=== PATIENT | female | born 1965 | race Caucasian/White ===

== ENCOUNTER 2017-03-03 14:38 | Emergency (ER) | payer OTHER ==
[~2017-03-03] VITALS: Ht 157.5 cm; Wt 74.5 kg
[~2017-03-03 14:38] MED LIST: BACTDS PO; CEPH-443 PO
[2017-03-03 14:40] VITALS: Ht 157.5 cm; Wt 74.5 kg
[2017-03-03] MEDS ORDERED: LIDOCAINE 1% (MDV) 20 ML INJ INJ STA (15:42)
[2017-03-03] MEDS ORDERED: DIPHTH/TET/ACEL PERTUSS (ADULT) 0.5 ML VIAL IM* ONE (16:00)
[2017-03-03] MEDS ORDERED: ACETAMINOPHEN 325 MG TAB PO ONE (16:00)
--- NOTE | 2017-03-03 16:38 | RADRPT ---
PROCEDURE: XR Hand. CLINICAL INDICATION: Fracture TECHNIQUE: Three views of the right hand were obtained. COMPARISON: No prior studies are available for comparison. FINDINGS: There is no acute osseous or articular abnormality. No evidence for fracture. Bone mineral density is preserved. The articular surfaces are smooth without evidence of marginal erosions. A subcortica l cyst is seen at the scaphoid. Bone mineral density is decreased. No evidence for a radiopaque fo reign body. The soft tissues are intact without evidence of calcifications. IMPRESSION: 1. No acute osseous abnormality or radiopaque foreign body. RPTAT: PP .Michelet Tang MD, Date Time Electronically viewed and signed by .Michelet Tang MD, MD on 03/03/2017 16:37 .d/
[2017-03-03] MEDS ORDERED: IBUP-1542 PO (16:51)
--- NOTE | 2017-03-03 16:53 | ERD ---
ER Documentation Chief Complaint Date/Time DATE: 03/03/17 TIME: 16:52 Chief Complaint RIGHT HAND LAC S/P FELL WHILE HOLDING A GLASS HPI This 52-year-old female sustained a laceration on her right palm after falling while holding a glass today. She denies restricted range of motion weakness. She has some bleeding primarily from the base of the right palm. She is very tiny abrasions at the tip of her index finger as well. Her tetanus is not up-to -date ROS All systems reviewed and are negative except as per history of present illness. Medications Home Meds Active Scripts Ibuprofen* (Motrin*) 600 Mg Tab, 600 MG PO Q6, #15 TAB Prov:JESUS JOHNSON MD 03/03/17 Cephalexin* (Keflex*) 500 Mg Capsule, 500 MG PO QID for 7 Days, CAP Prov:ABDI MOORE PA-C 07/30/16 Sulfamethoxazole-Trimethoprim* (Bactrim* DS) 800-160 Mg Tab, 1 TAB PO BID for 7 Days, TAB Prov:ABDI MOORE PA-C 07/30/16 Allergies Allergies: Coded Allergies: No Known Drug Allergies (Verified Allergy, Unknown, 07/30/16) PMhx/Soc Medical and Surgical Hx: pt denies Medical Hx, pt denies Surgical Hx Hx Alcohol Use: No Hx Substance Use: No Hx Tobacco Use: No Smoking Status: Never smoker Physical Exam Vitals Vital Signs Date Time Temp Pulse Resp B/P Pulse Ox O2 Delivery O2 Flow Rate FiO2 03/03/17 14:40 97.6 82 18 128/58 98 Physical Exam Const: [] Alert, not ill-appearing. Head: Atraumatic Eyes: Normal Conjunctiva ENT: Normal External Ears, Nose and Mouth. Neck: Full range of motion..~ No meningismus. Resp: Clear to auscultation bilaterally Cardio: Regular rate and rhythm, no murmurs Abd: Soft, non tender, non distended. Normal bowel sounds Skin: No petechiae or rashes. There is approximately 3.5 cm V-shaped laceration of the proximal palm. There is no exposed tendons or evidence of neurologic or tendon deficit. There is a few small abrasion to the tip of the index finger and the base of the fifth digit. There is no visible foreign body , erythema or active bleeding. Back: No midline or flank tenderness Ext: No cyanosis, or edema Neur: Awake and alert Psych: Normal Mood and Affect Results 24 hrs Current Medications Medications (Trade) Dose Ordered Sig/Parish Route PRN Reason Start Time Stop Time Status Last Admin Dose Admin Diphtheria/ Tetanus/Acell Pertussis (Adacel) 0.5 ml ONCE ONCE IM* 03/03/17 16:00 03/03/17 16:01 DC 03/03/17 15:51 Acetaminophen (Tylenol Tab) 650 mg ONCE ONCE PO 03/03/17 16:00 03/03/17 16:01 DC 03/03/17 15:50 Lidocaine (Xylocaine 1% (Mdv) 20 ml) 20 ml ONCE STAT INJ 03/03/17 15:42 03/03/17 15:44 DC Procedures/MDM X-ray Hand 3V interpreted by me: Scaphoid: [Normal] Bones: [No fracture] Joints: [No dislocation] Foreign body: [None]. Impression have a normal right index ray without visible foreign body Right hand lacerations were irrigated copiously with normal saline. 3 cc of lidocaine was used for local infiltration. 5 4-0 nylon sutures were used to approximate the wound and the wound was dressed and patient tolerated procedure well. Patient has no signs of infection, tendon or neurologic deficit, foreign body, fracture, dislocation. She will discharged home instructions for wound check in 2 days and suture removal in 7-10 days. She should return sooner for fevers, redness, new symptoms Departure Diagnosis: Primary Impression: Laceration Condition: Stable Patient Instructions: Laceration, All Additional Instructions: cheque 2 fay para cheque para infeccion. cheque 7-10 fay para saca los puntos / grapas. JESUS JOHNSON MD March 03, 2017 16:53
[2017-03-03 17:30] VITALS: BP 125/54; PULSE 70; RESP 18; TEMP 97.6
== END 2017-03-03 17:30 | disposition home or self-care (01) ==
LOC: FTE 14:38
DX: S61.411A Laceration without foreign body of right hand, initial encounter (principal); W01.110A Fall on same level from slipping, tripping and stumbling with subsequent striking against sharp glass, initial encounter; Y92.9 Unspecified place or not applicable; Z23 Encounter for immunization
CPT/HCPCS: 12002; 73130; 90715; Z7610; 90471

== ENCOUNTER 2017-03-05 06:20 | Emergency (ER) | payer OTHER ==
[~2017-03-05] VITALS: Ht 160 cm; Wt 76.0 kg
[~2017-03-05 06:20] MED LIST changes: +IBUP-1542 PO
[2017-03-05 06:26] VITALS: Ht 160 cm; Wt 76.0 kg
--- NOTE | 2017-03-05 07:30 | ERD ---
ER Documentation Chief Complaint Date/Time DATE: 03/05/17 TIME: 07:08 Chief Complaint wound check on rt hand HPI 52-year-old female patient with no significant past medical history presents the ED for a wound check. Patient fell on her right palm while holding a glass on March 03, 2017. Patient denies any weakness, numbness or tingling, loss of sensation, fever, chills, loss of range of motion. Patient was up-to-date with her tetanus vaccine during her last visit. X-rays show no fractures or visible foreign bodies. Patient states that she has 5 sutures. ROS All systems reviewed and are negative except as per history of present illness. Medications Home Meds Active Scripts Ibuprofen* (Motrin*) 600 Mg Tab, 600 MG PO Q6, #15 TAB Prov:JESUS JOHNSON MD 03/03/17 Cephalexin* (Keflex*) 500 Mg Capsule, 500 MG PO QID for 7 Days, CAP Prov:ABDI MOORE PA-C 07/30/16 Sulfamethoxazole-Trimethoprim* (Bactrim* DS) 800-160 Mg Tab, 1 TAB PO BID for 7 Days, TAB Prov:ABDI MOORE PA-C 07/30/16 Allergies Allergies: Coded Allergies: No Known Drug Allergies (Verified Allergy, Unknown, 07/30/16) PMhx/Soc Hx Alcohol Use: No Hx Substance Use: No Hx Tobacco Use: No Physical Exam Vitals Vital Signs Date Time Temp Pulse Resp B/P Pulse Ox O2 Delivery O2 Flow Rate FiO2 03/05/17 06:26 98.1 71 16 130/66 99 Physical Exam Const: [id number], well-nourished. In no acute distress. Head: Atraumatic, normocephalic Eyes: Normal Conjunctiva without injection ENT: Normal external ear, nose and mouth. Neck: Full range of motion. No meningismus. Resp: Clear to auscultation bilaterally. No wheezing, rhonchi, rales, or crackles. No accessory muscle use. No retractions. Cardio: Regular rate and rhythm, no murmurs Skin: No petechiae or rashes Back: No midline tenderness. No CVA tenderness. Ext: No cyanosis, or edema. Cap refill less than 2 seconds. Distal pulses intact bilaterally. 3.5 cm V-shaped laceration on the right palmar side with no visualization of any tendon or dehiscence. No purulent discharge. No bleeding noted. No fluctuance or induration or erythema or edema noted. Neur: Awake and alert. Normal gait and coordination. Muscle strength 5/5. Sensation intact bilaterally. Psych: Normal Mood and Affect Procedures/MDM This is a 52-year-old female patient with no significant past medical history presents to the ED for a wound check. Patient is afebrile and nontoxic- appearing. Patient has normal vital signs. There is no erythema, edema, purulent discharge. No signs of deep space infection, cellulitis, sepsis, or other emergent conditions. Patient is neurovascularly intact. No evidence of compartment syndrome, neurologic injury, vascular injury, open joint, tendon laceration, or foreign body. Patient is appropriate for outpatient follow up. Instructed patient to return for suture removal in 7 days. Follow up with primary care physician in 1-2 days. Instructed patient to return to the ED sooner for any worsening symptoms. Patient's questions were answered. Patient understood and agreed with discharge plan. Patient discharged stable. Departure Diagnosis: Primary Impression: Encounter for re-check of laceration wound Condition: Stable Patient Instructions: Wound Care, Laceration, Hand Referrals: [facility], [facility] YOU HAVE RECEIVED A MEDICAL SCREENING EXAM AND THE RESULTS INDICATE THAT YOU DO NOT HAVE A CONDITION THAT REQUIRES URGENT TREATMENT IN THE EMERGENCY DEPARTMENT. FURTHER EVALUATION AND TREATMENT OF YOUR CONDITION CAN WAIT UNTIL YOU ARE SEEN IN YOUR DOCTORS OFFICE WITHIN THE NEXT 1-2 DAYS. IT IS YOUR RESPONSIBILITY TO MAKE AN APPOINTMENT FOR FOLOW-UP CARE. IF YOU HAVE A PRIMARY DOCTOR --you should call your primary doctor and schedule an appointment IF YOU DO NOT HAVE A PRIMARY DOCTOR YOU CAN CALL OUR PHYSICIAN REFERRAL HOTLINE AT IF YOU CAN NOT AFFORD TO SEE A PHYSICIAN YOU CAN CHOSE FROM THE FOLLOWING [facility], [facility] [address] [facility] [address] [facility] [address] [facility] [address] [facility] [address] [facility] [address] [facility]. [facility] YOU HAVE RECEIVED A MEDICAL SCREENING EXAM AND THE RESULTS INDICATE THAT YOU DO NOT HAVE A CONDITION THAT REQUIRES URGENT TREATMENT IN THE EMERGENCY DEPARTMENT. FURTHER EVALUATION AND TREATMENT OF YOUR CONDITION CAN WAIT UNTIL YOU ARE SEEN IN YOUR DOCTORS OFFICE WITHIN THE NEXT 1-2 DAYS. IT IS YOUR RESPONSIBILITY TO MAKE AN APPOINTMENT FOR FOLOW-UP CARE. IF YOU HAVE A PRIMARY DOCTOR --you should call your primary doctor and schedule and appointment IF YOU DO NOT HAVE A PRIMARY DOCTOR YOU CAN CALL OUR PHYSICIAN REFERRAL HOTLINE AT . IF YOU CAN NOT AFFORD TO SEE A PHYSICIAN YOU CAN CHOSE FROM THE FOLLOWING [facility]: [facility] [address] [place] [address] [facility] [address] [place] [address] [facility] [address] [place] [address] [facility] URGENT CARE/SPECIALTIES Additional Instructions: SUTURE REMOVAL:CONSULTE A ROD MDICO PARA SACAR ROD PUNTOS.PARA LA KELI 5-6 d as.EN OTRO LUGAR 7-10 green. Regrese a estas instalaciones si no se mejora clarissa esperbamos o clarissa le dijimos. NIKHIL KENDRICK PA-C March 05, 2017 07:29 NIKHIL KENDRICK PA-C March 05, 2017 07:29
== END 2017-03-05 07:40 | disposition home or self-care (01) ==
LOC: FTE 06:20
DX: Z48.01 Encounter for change or removal of surgical wound dressing (principal)
CPT/HCPCS: 99281

== ENCOUNTER 2017-03-12 06:25 | Emergency (ER) | payer OTHER ==
[~2017-03-12] VITALS: Ht 157.5 cm; Wt 74.0 kg
[2017-03-12 06:27] VITALS: Ht 157.5 cm; Wt 74.0 kg
--- NOTE | 2017-03-12 08:15 | ERD ---
ER Documentation Chief Complaint Date/Time DATE: 03/12/17 TIME: 08:15 Chief Complaint for suture removal HPI 52-year-old female patient presents the ED for a suture removal of a laceration on her right palm that occurred on March 03. Patient denies any tenderness, redness, fevers. She has no complaints. ROS All systems reviewed and are negative except as per history of present illness. Medications Home Meds Active Scripts Ibuprofen* (Motrin*) 600 Mg Tab, 600 MG PO Q6, #15 TAB Prov:JESUS JOHNSON MD 03/03/17 Cephalexin* (Keflex*) 500 Mg Capsule, 500 MG PO QID for 7 Days, CAP Prov:ABDI MOORE PA-C 07/30/16 Sulfamethoxazole-Trimethoprim* (Bactrim* DS) 800-160 Mg Tab, 1 TAB PO BID for 7 Days, TAB Prov:ABDI MOORE PA-C 07/30/16 Allergies Allergies: Coded Allergies: No Known Drug Allergies (Verified Allergy, Unknown, 07/30/16) PMhx/Soc Hx Alcohol Use: No Hx Substance Use: No Hx Tobacco Use: No Physical Exam Vitals Vital Signs Date Time Temp Pulse Resp B/P Pulse Ox O2 Delivery O2 Flow Rate FiO2 03/12/17 06:27 98.2 74 16 127/59 97 Physical Exam General: WD/WN, in no apparent distress, non-toxic appearing HENT: NC/AT Eyes: Conjunctiva normal Neck: Supple Pulm: Clear to auscultation, normal labored breathing; no wheezing/rales/ rhonchi heard CV: Good capillary refill GI: Non-distended, no guarding Back: No masses Ext: No clubbing, cyanosis, or edema Neuro: Moves on all fours Skin: 5 sutures intact, no erythema, induration or purulence or dehiscence noted Psych: Normal mood Procedures/MDM 52-year-old female patient presents the ED for a suture removal of a laceration on her right palm that occurred on March 03 however due to examination I do not believe that the sutures are ready to come out yet. I discussed with patient to return in 5 days for suture removal. There was no evidence of cellulitis or dehiscence. Patient is neurovascular and hemodynamic stable for discharge her home. She understands and agrees with this plan Departure Diagnosis: Primary Impression: Encounter for wound re-check Additional Impression: Laceration Condition: Stable Patient Instructions: Laceration, Hand Additional Instructions: SUTURE REMOVAL:CONSULTE A ROD MDICO PARA SACAR ROD PUNTOS en 5-6 green Regrese a estas instalaciones si no se mejora clarissa esperbamos o clarissa le dijimos. MARJ SHORT PA-C March 12, 2017 08:15
== END 2017-03-12 07:06 | disposition home or self-care (01) ==
LOC: FTE 06:25
DX: Z48.01 Encounter for change or removal of surgical wound dressing (principal); S61.411D Laceration without foreign body of right hand, subsequent encounter; X58.XXXD Exposure to other specified factors, subsequent encounter
CPT/HCPCS: 99281

== ENCOUNTER 2017-03-17 06:39 | Emergency (ER) | payer OTHER ==
[~2017-03-17] VITALS: Ht 157.5 cm; Wt 75.0 kg
[2017-03-17 06:42] VITALS: Ht 157.5 cm; Wt 75.0 kg
--- NOTE | 2017-03-17 06:59 | ERD ---
ER Documentation Chief Complaint Date/Time DATE: 03/17/17 TIME: 06:56 Chief Complaint suture removal on rt hand HPI Patient is a 55-year-old female presents to the emergency department for suture removal to her right palm. Patient states that she sustained a laceration on 09-09 with a piece of glass. Patient denies any pain, redness, swelling, fevers , or chills. Patient has normal range of motion of her hand. She is right- hand dominant. Patient has no other complaints at this time. ROS All systems reviewed and are negative except as per history of present illness. Medications Home Meds Active Scripts Ibuprofen* (Motrin*) 600 Mg Tab, 600 MG PO Q6, #15 TAB Prov:JESUS JOHNSON MD 03/03/17 Cephalexin* (Keflex*) 500 Mg Capsule, 500 MG PO QID for 7 Days, CAP Prov:ABDI MOORE PA-C 07/30/16 Sulfamethoxazole-Trimethoprim* (Bactrim* DS) 800-160 Mg Tab, 1 TAB PO BID for 7 Days, TAB Prov:ABDI MOORE PA-C 07/30/16 Allergies Allergies: Coded Allergies: No Known Drug Allergies (Verified Allergy, Unknown, 07/30/16) PMhx/Soc Medical and Surgical Hx: pt denies Medical Hx, pt denies Surgical Hx Hx Alcohol Use: No Hx Substance Use: No Hx Tobacco Use: No FmHx Family History: No diabetes Physical Exam Vitals Vital Signs Date Time Temp Pulse Resp B/P Pulse Ox O2 Delivery O2 Flow Rate FiO2 03/17/17 06:42 97.8 80 16 128/62 98 Physical Exam GENERAL: Well-developed, well-nourished female. Appears in no acute distress. HEAD: Normocephalic, atraumatic. EYES: Pupils are equally reactive bilaterally. EOMs grossly intact. No conjunctival erythema. ENT: Moist mucous membranes. No uvula deviation. No kissing tonsils. NECK: Supple. No meningismus. Normal range of motion of the neck. LUNG: Clear to auscultation bilaterally. No rhonchi, wheezing, rales or coarse breath sounds. HEART: Regular rate and rhythm. No murmurs, rubs or gallops. EXTREMITIES: Equal pulses bilaterally. No peripheral clubbing, cyanosis or edema. No unilateral leg swelling. NEUROLOGIC: Alert and oriented. Moving all four extremities without any difficulty. Normal speech. Steady gait. Normal ROM of all digits of the right hand. SKIN: Normal color. Warm and dry. 5 sutures intact on right palmar surface. No swelling, no redness, no purulent discharge. No signs of wound dehiscence. Procedures/MDM MEDICAL DECISION MAKING: This is a 52-year-old female who presents for suture removal of a laceration on her right palm that occurred on 03-03-17. Vital signs were reviewed. Patient is afebrile. 5 sutures were removed without any difficulty. The wound appears to be healing well with no concerns of acute infection at this time. No wound drainage or wound dehiscence noted. Tetanus is up-to-date. Post-procedural wound care was discussed with the patient. There is strips were placed in the patient's wound. At this time the patient's presentation is most consistent with suture removal. Low suspicion for wound dehiscence, cellulitis, abscess, tendon injury, deep laceration. . DISCHARGE: At this time, the patient is stable for discharge and outpatient management. Post-procedural wound care was discussed with the patient. I have instructed the patient to promptly return to the ER for any new or worsening symptoms including increasing pain, fever, warmth, redness or swelling. The patient and/ or family expressed understanding of and agreement with this plan. All questions were answered. Home care instructions were provided. Departure Diagnosis: Primary Impression: Encounter for removal of sutures Condition: Stable Patient Instructions: Suture Removal, No Complication Additional Instructions: Call your primary care doctor TOMORROW for an appointment during the next 1-2 days.See the doctor sooner or return here if your condition worsens before your appointment time. LAURIE BARNES PA-C March 17, 2017 06:59
== END 2017-03-17 07:38 | disposition home or self-care (01) ==
LOC: FTE 06:39
DX: Z48.02 Encounter for removal of sutures (principal)
CPT/HCPCS: 99281